=== PATIENT | female | born 1995 | race American Indian/Alaskan Native ===

== ENCOUNTER 2019-10-01 18:00 | Outpatient (CLI) | payer MEDICAID ==
[2019-10-01] MEDS ORDERED: ACETAMINOPHEN 325 MG TAB PO PRN (18:29)
[2019-10-01] MEDS ORDERED: ONDANSETRON 4 MG/2 ML INJ IV PRN (18:29)
--- NOTE | 2019-10-01 18:55 | History and Physical Report ---
History of Present Illness Date of examination: 10/01/19 (pt sent from [facility] office after her PNV this AM) Chief complaint: Chief Complaint / Current Status: Patient presents for OB f/u. Patient complains of depression and stress. Patient reports wanting to hurt herself............................................ .........................Karey Rhoades October 01, 2019 9:59 AM Problem # 1: Depression (ICD-311) ([id number]) states she has had counseling in the past but declined medication. Sent immediately to [facility] for admission (patient's mother is with her) and evaluation. Patient voiced understanding and agrees with POC History of present illness: EDC Confirmation: 01/14/2020 Gestational Age: 8 1/7 weeks Past History : 2 Term Births: 1 Premature Births: 0 Living Children: 1 Para: 1 Mult. Births: 0 Prev : 0 Prev. attempt? 0 Aborta: 0 Elect. Ab: 0 Spont. Ab: 0 Ectopics: 0 # 1 Delivery date: 2011 Weeks Gestation: 38 Delivery type: Delivery location: [place] Sex: Male weight: 6-5 Risk Factors: Smoked Tobacco Use: Former smoker Cigarettes: Yes -- 4 cigs/day pack(s) per day, Year started: 14 yrs old Years smoked: 03/2019 Smokeless Tobacco Use: Never Tobacco Use Comments: yoly prior to preg Passive smoke exposure: no Drug use: no HIV high-risk behavior: no Alcohol use: no Exercise: yes Times per week: 2 Type of Exercise: walking Seatbelt use: preg-food counselor % Dietary Counseling: pn yes PAP Smear History: Date of Last PAP Smear: 11/30/2017 Results: Normal Past Medical History: Umbilical hernia - 2018 Past Surgical History: Negative Past Surgical History Family History Summary: MGM - Has Family History of Hyperlipidemia - Entered On: 06/05/2019 MGM - Has Family History of Diabetes - Entered On: 06/05/2019 Social History: Patient is single Smoking History: Patient is a former smoker. 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 Infection History Hx of STD: gonorrhea HIV Risk Eval: no Hepatitis B Risk Eval: low risk Personal hx. of genital herpes: no Partner hx. of genital herpes: no Varicella/Chicken Pox Status: Previous Disease TB Risk: no Genetic History Congenital Heart Defect: Mom: no Dad: no Jody Disease: Mom: no Dad: no Thalassemia Mom: no Dad: no Neural Tube Defect Mom: no Dad: no Down's Syndrome Mom: no Dad: no Klaus-Sachs Mom: no Dad: no Sickle Cell Disease/Trait Mom: no Dad: no Hemophilia Mom: no Dad: no Muscular Dystrophy Mom: no Dad: no Cystic Fibrosis Mom: no Dad: no [place] Chorea Mom: no Dad: no Mental Retardation Mom: no Dad: no Fragile X Mom: no Dad: no Other Genetic/Chromosomal Disorder Mom: no Dad: no Child w/other defect Mom: no Dad: no Enviromental Exposures Xray Exposure: no Medication, drug, or alcohol use since LMP: no Chemical/Other Exposure: no Exposure to Cat Liter: no Hx of Parvovirus (Fifth Disease): no Occupational Exposure to Children: none Active Medications (reviewed today): None Current Allergies (reviewed today): no known allergies Past History REINFORCING ROD LAYER History: chlamydia, trichomonas Family/Genetic History: sickle cell/trait, cystic fibrosis/trait - Obstetrical History Expected Date of Delivery: 01/14/20 Actual Gestation: 25 Week(s) 1 Day(s) : 2 Para: 1 Hx # Term Pregnancies: 1 Number of Pregnancies: 0 Spontaneous Abortions: 0 Induced : 0 Number of Living Children: 1 Medications and Allergies Allergies Allergy/AdvReac Type Severity Reaction Status Date / Time No Known Allergies Allergy Verified 10/01/19 19:04 Active Meds: Active Medications Acetaminophen (Tylenol) 650 mg PO Q4H PRN PRN Reason: Pain MILD(1-3)/Fever >100.5/GOSS Multivitamins/Iron/Calcium ( Vitamin) 1 each PO QDAY ARINA Ondansetron HCl (Zofran) 4 mg IV Q6H PRN PRN Reason: Nausea And Vomiting Sertraline HCl (Zoloft) 100 mg PO QDAY ARINA - Vital Signs Vital signs: Vital Signs Temp Pulse Resp BP 98.7 F 84 18 112/62 10/01/19 18:42 10/01/19 18:42 10/01/19 18:42 10/01/19 18:42 Temp Pulse Resp BP Pulse Ox 98.7 F 84 18 112/62 10/01/19 18:42 10/01/19 18:42 10/01/19 18:42 10/01/19 18:42 - Obstetrical FHR: category 1 Uterine Contraction Monitor Mode: External Cervical Dilatation: 0.5 (fluids started) Cervical Effacement Percentage: 10 station: -3 Uterine Contraction Frequency (min): q2-3 Uterine Contraction Duration: 45 Uterine Contraction Pattern: Irregular Uterine Tone Measurement Phase: Resting Uterine Contraction Intensity: Mild Results Result Diagrams: 10/01/19 20:47 All other labs normal. Assessment and Plan 23yo @ 25 weeks gestation with SI. Sent from office this morning. Pt arrived after coordinating care for her child.Pt is here willing seeking help f or her mental health concerns. All orders in EMR. aware. Pt.is having some ctx that pt perceives. palpates moderate. IVFs infusing SVE .5,10%,-3 Terb .25 subq given. Visited with pt for an extended time. She tells me she has been "bothered" by depression since she was 11yo. She has had times she has sought care but just did not carry through. She says that she realizes that she will be the mom of three and has to get her self together. Pt did report that she vomited after the Zoloft and saw it come up. We also talked @ her +UDS. Pt voices that she eats the marijuana more than smokes. She denies any other drug use. Pt is very happy to be here and appreciates our helping her. - Patient Problems (1) Suicidal ideations Onset Date: ~10/01/19 Current Visit: Yes Status: Acute Plan to address problem: Pt told admitting RN that her dad had taken all the bottles of medication away from her because she had voiced taking them last week. This week she said she was going to take her mom's car and drive off a alejandra.. Pt did come to the hospital willingly and agrees to POC. Sitter has been requested, [address]. Pt started on Zoloft 100mg QD after consult with Dr Albright (2) Dichorionic diamniotic twin in second trimester Onset Date: ~10/01/19 Current Visit: Yes Status: Acute Plan to address problem: [facility] collaborating with [facility] in pt's care due to twin gestation Di/Di. Consult placed for continuity of care with [facility]. (3) 25 to 26 weeks gestation of Onset Date: ~10/01/19 Current Visit: Yes Status: Acute Plan to address problem: [facility]U admission. Orders in EMR. Appreciate consult with the care of this pt. and [facility] for ongoing care of pt. consulted
[2019-10-01] MEDS: SERTRALINE 100 MG TAB PO SCH (20:45)
[2019-10-01 21:07] LABS: Basophils % (Auto) 0.4 % (0.0-1.8); Eosinophils # (Auto) 0.1 K/mm3 (0.0-0.4); Eosinophils % (Auto) 1.3 % (0.0-4.3); Hematocrit 30.8 % (30.3-42.9); Hemoglobin 10.8 gm/dl (10.1-14.3); Lymphocytes # (Auto) 1.5 K/mm3 (1.2-5.4); Lymphocytes % (Auto) 18.1 % (13.4-35.0); Mean Corpuscular HGB Conc 35 % (30-34); Mean Corpuscular Volume 97 fl (79-97); Monocytes % (Auto) 11.4 % (0.0-7.3); Platelet Count 213 K/mm3 (140-440); Red Blood Count 3.19 M/mm3 (3.65-5.03); Red Cell Distribution Width 12.9 % (13.2-15.2)
[2019-10-01 21:12] LABS: Amphetamine Screen,Urine PRESUMPTIVE NEGATIVE; Benzodiazepines Screen,Urine PRESUMPTIVE NEGATIVE; Cocaine Screen,Urine PRESUMPTIVE NEGATIVE; Methadone Screen,Urine PRESUMPTIVE NEGATIVE; Opiate Screen,Urine PRESUMPTIVE NEGATIVE
[2019-10-01 21:23] LABS: Cannabinoid Screen,Urine PRESUMPTIVE POSITIVE
[2019-10-02] MEDS ORDERED: ONDANSETRON 4 MG ODT TAB ONE (00:32)
[2019-10-02] MEDS ORDERED: ONDANSETRON 4 MG ODT TAB PO PRN ×3 (02:53→02:56)
[2019-10-02] MEDS ORDERED: LACTATED RINGERS 1,000 ML ONE (05:53)
[2019-10-02] MEDS ORDERED: TERBUTALINE 1 MG/1 ML INJ SUB-Q ONE (07:00)
[2019-10-02] MEDS: LACTATED RINGERS 1,000 ML IV SCH ×3 (08:30→19:36)
[2019-10-02] MEDS ORDERED: PRENATAL VIT27-FE FUMARATE-FOLIC ACID VIT TAB PO SCH (10:00)
[2019-10-02] MEDS: SERTRALINE 100 MG TAB PO SCH (10:23)
--- NOTE | 2019-10-02 15:44 | Progress Note ---
Assessment and Plan pt resting, no complaints. sitter present. - Patient Problems (1) 25 to 26 weeks gestation of Onset Date: ~10/01/19 Current Visit: Yes Status: Acute (2) Depression affecting in second trimester, antepartum Current Visit: Yes Status: Acute (3) Dichorionic diamniotic twin in second trimester Onset Date: ~10/01/19 Current Visit: Yes Status: Acute Plan to address problem: monitoring q8hrs in the absence of decreased fm or signs of labor. AMFM consult in place, they will come see patient tomorrow (4) Suicidal ideations Onset Date: ~10/01/19 Current Visit: Yes Status: Acute Plan to address problem: waiting on mental health to come see patient pt currently in good spirits Subjective - Subjective Date of service: 10/02/19 Principal diagnosis: IUP @ 25w0d; di/di twins w/ suicidal ideation Patient reports: movement normal, no new complaints, no loss of fluid, no vaginal bleeding, no contractions Objective - Vital Signs Vital Signs: Vital Signs - 12hr 10/02/19 10/02/19 10/02/19 04:28 05:03 07:23 Temperature 98.6 F Pulse Rate 67 67 72 Respiratory 18 Rate Blood Pressure 108/58 Blood Pressure 108/58 [Left] O2 Sat by Pulse 99 Oximetry 10/02/19 10/02/19 10/02/19 07:28 07:33 07:38 Temperature Pulse Rate 65 73 78 Respiratory Rate Blood Pressure Blood Pressure [Left] O2 Sat by Pulse 98 98 97 Oximetry 10/02/19 10/02/19 10/02/19 07:43 07:45 07:48 Temperature 98.2 F Pulse Rate 88 76 Respiratory 16 Rate Blood Pressure Blood Pressure [Left] O2 Sat by Pulse 99 98 Oximetry 10/02/19 10/02/19 10/02/19 07:53 07:58 08:03 Temperature Pulse Rate 81 96 H 93 H Respiratory Rate Blood Pressure Blood Pressure [Left] O2 Sat by Pulse 99 100 99 Oximetry 10/02/19 10/02/19 10/02/19 08:08 08:13 08:18 Temperature Pulse Rate 94 H 82 80 Respiratory Rate Blood Pressure Blood Pressure [Left] O2 Sat by Pulse 97 100 98 Oximetry 10/02/19 10/02/19 10/02/19 08:23 08:28 08:33 Temperature Pulse Rate 79 93 H 83 Respiratory Rate Blood Pressure Blood Pressure [Left] O2 Sat by Pulse 100 99 99 Oximetry 10/02/19 10/02/19 10/02/19 08:38 08:43 08:48 Temperature Pulse Rate 90 76 68 Respiratory Rate Blood Pressure Blood Pressure [Left] O2 Sat by Pulse 99 100 99 Oximetry 10/02/19 10/02/19 10/02/19 08:53 08:58 09:03 Temperature Pulse Rate 71 76 72 Respiratory Rate Blood Pressure Blood Pressure [Left] O2 Sat by Pulse 99 99 99 Oximetry 10/02/19 10/02/19 10/02/19 09:08 09:13 09:18 Temperature Pulse Rate 78 77 83 Respiratory Rate Blood Pressure Blood Pressure [Left] O2 Sat by Pulse 98 98 97 Oximetry 10/02/19 10/02/19 10/02/19 09:23 09:28 09:33 Temperature Pulse Rate 76 77 80 Respiratory Rate Blood Pressure Blood Pressure [Left] O2 Sat by Pulse 98 97 97 Oximetry 10/02/19 10/02/19 10/02/19 09:38 09:43 09:48 Temperature Pulse Rate 73 85 74 Respiratory Rate Blood Pressure Blood Pressure [Left] O2 Sat by Pulse 98 98 97 Oximetry 10/02/19 10/02/19 10/02/19 09:53 09:58 10:03 Temperature Pulse Rate 76 77 76 Respiratory Rate Blood Pressure Blood Pressure [Left] O2 Sat by Pulse 98 97 97 Oximetry 10/02/19 10/02/19 10/02/19 10:13 10:18 10:20 Temperature Pulse Rate 84 76 72 Respiratory Rate Blood Pressure 108/59 Blood Pressure [Left] O2 Sat by Pulse 99 99 Oximetry 10/02/19 10/02/19 10/02/19 10:23 10:28 10:33 Temperature Pulse Rate 78 83 87 Respiratory Rate Blood Pressure Blood Pressure [Left] O2 Sat by Pulse 99 99 98 Oximetry 10/02/19 10/02/19 10/02/19 10:38 10:43 10:48 Temperature Pulse Rate 81 80 73 Respiratory Rate Blood Pressure Blood Pressure [Left] O2 Sat by Pulse 99 99 100 Oximetry 10/02/19 10/02/19 10/02/19 10:53 10:58 11:03 Temperature Pulse Rate 74 95 H 91 H Respiratory Rate Blood Pressure Blood Pressure [Left] O2 Sat by Pulse 99 99 98 Oximetry 10/02/19 10/02/19 10/02/19 11:08 11:13 11:42 Temperature Pulse Rate 74 74 74 Respiratory Rate Blood Pressure Blood Pressure [Left] O2 Sat by Pulse 98 98 98 Oximetry 10/02/19 10/02/19 10/02/19 11:47 11:52 11:57 Temperature Pulse Rate 70 77 68 Respiratory Rate Blood Pressure Blood Pressure [Left] O2 Sat by Pulse 99 98 98 Oximetry 10/02/19 10/02/19 10/02/19 12:02 12:07 12:12 Temperature Pulse Rate 69 65 76 Respiratory Rate Blood Pressure Blood Pressure [Left] O2 Sat by Pulse 98 98 97 Oximetry 10/02/19 10/02/19 10/02/19 12:17 12:22 12:40 Temperature Pulse Rate 68 77 65 Respiratory Rate Blood Pressure Blood Pressure [Left] O2 Sat by Pulse 98 99 98 Oximetry 10/02/19 10/02/19 10/02/19 12:45 12:50 12:55 Temperature Pulse Rate 64 68 76 Respiratory Rate Blood Pressure Blood Pressure [Left] O2 Sat by Pulse 97 97 97 Oximetry 10/02/19 10/02/19 10/02/19 13:00 13:05 13:10 Temperature Pulse Rate 70 82 74 Respiratory Rate Blood Pressure Blood Pressure [Left] O2 Sat by Pulse 97 97 97 Oximetry 10/02/19 10/02/19 10/02/19 13:15 13:19 13:20 Temperature Pulse Rate 76 78 73 Respiratory Rate Blood Pressure 128/75 Blood Pressure [Left] O2 Sat by Pulse 98 97 Oximetry 10/02/19 10/02/19 10/02/19 13:25 13:30 13:35 Temperature Pulse Rate 71 71 71 Respiratory Rate Blood Pressure Blood Pressure [Left] O2 Sat by Pulse 98 98 99 Oximetry 10/02/19 10/02/19 10/02/19 13:40 13:52 13:57 Temperature Pulse Rate 78 75 64 Respiratory Rate Blood Pressure Blood Pressure [Left] O2 Sat by Pulse 99 99 98 Oximetry 10/02/19 10/02/19 10/02/19 14:02 14:07 14:12 Temperature Pulse Rate 64 67 67 Respiratory Rate Blood Pressure Blood Pressure [Left] O2 Sat by Pulse 99 98 98 Oximetry 10/02/19 10/02/19 10/02/19 14:17 14:22 14:27 Temperature Pulse Rate 69 74 64 Respiratory Rate Blood Pressure Blood Pressure [Left] O2 Sat by Pulse 98 97 99 Oximetry 10/02/19 10/02/19 10/02/19 14:32 14:37 14:42 Temperature Pulse Rate 66 70 69 Respiratory Rate Blood Pressure Blood Pressure [Left] O2 Sat by Pulse 97 97 97 Oximetry 10/02/19 10/02/19 10/02/19 14:47 14:52 14:57 Temperature Pulse Rate 74 66 71 Respiratory Rate Blood Pressure Blood Pressure [Left] O2 Sat by Pulse 97 97 98 Oximetry 10/02/19 10/02/19 15:02 15:07 Temperature Pulse Rate 69 65 Respiratory Rate Blood Pressure Blood Pressure [Left] O2 Sat by Pulse 99 98 Oximetry - Exam Breasts: normal Cardiovascular: Regular rate Lungs: Clear to auscultation, Normal air movement Abdomen: Present: normal appearance, soft FHR: auscultation normal Uterine Contraction Monitor Mode: External Uterine Contraction Pattern: Absent Uterine Tone Measurement Phase: Resting Extremities: normal - Labs Labs: Abnormal Labs 10/01/19 20:47 RBC 3.19 L MCH 34 H MCHC 35 H RDW 12.9 L [place] % (Auto) 11.4 H [place] # 1.0 H Laboratory Results - last 24 hr 10/01/19 10/01/19 20:47 Unknown WBC 8.4 RBC 3.19 L Hgb 10.8 Hct 30.8 MCV 97 MCH 34 H MCHC 35 H RDW 12.9 L Plt Count 213 Lymph % (Auto) 18.1 [place] % (Auto) 11.4 H Eos % (Auto) 1.3 Baso % (Auto) 0.4 Lymph # 1.5 [place] # 1.0 H Eos # 0.1 Baso # 0.0 Seg Neutrophils % 68.8 Seg Neutrophils # 5.8 Urine Opiates Screen Presumptive negative Urine Methadone Screen Presumptive negative Ur Barbiturates Screen Presumptive negative Ur Phencyclidine Scrn Presumptive negative Ur Amphetamines Screen Presumptive negative U Benzodiazepines Scrn Presumptive negative Urine Cocaine Screen Presumptive negative U Marijuana (THC) Screen Presumptive positive Drugs of Abuse Note Disclamer
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
--- NOTE | 2019-10-02 17:27 | Event Note ---
Date: 10/02/19 Agree with MW exam and note. Will await full evaluation by psych and recommendations. Pt currently stable from ob standpoint for d/c to home.
[2019-10-03] MEDS ORDERED: DEXMEDETOMIDINE 200 MCG/2 ML VIAL IV ONE (00:30)
[2019-10-03 04:59] VITALS: BP 114/61
[2019-10-03] MEDS: LACTATED RINGERS 1,000 ML IV SCH (05:00)
[2019-10-03] MEDS ORDERED: NIFEdipine*For Tocolysis only* 10 MG CAPSULE PO ONE ×2 (06:36→06:46)
--- NOTE | 2019-10-03 09:45 | Discharge Summary ---
Providers - Providers Date of Admission: 10/03/2019 Date of discharge: 10/03/19 (Pt denies SI, plans to harm self or anyone else and desires to go home.) Attending physician: LATHA GARCIA 10/01/19 18:29 Consult to Physician [CONS] Routine Comment: Consulting Provider: MONA ADAMES Physician Instructions: Reason For Exam: continuity of care 10/01/19 18:47 Consult to Mental Health [CONS] Urgent Reason For Exam: voiced thoughts of harming herself Primary care physician: LATHA GARCIA Hospitalization Reason for admission: other (25 wks twin IUP, who presented with thoughts of suicide, and a plan to harm herself. ) Pertinent studies: This AM, pt denies SI, feelings of harming herself or others. She also denies vag bleeding, LOF, ctxs. Explained that if any of the above occur to go to the OB triage immediately. Pt verbalized understanding. Her mother is coming to pick her up from the hospital. She also understands that she is to schedule appointment with the high density talc coater operator, , and mental health teams within the week. Hospital course: S: "I'm feeling so much better today. I have so many stories from other women and it is making me feel better. I have no plans to harm myself, thoughts of killing my self, or a plan to hurt others. the medicine that they are giving me is making me feel better and my brain feels better". O: Denies SI, harm to self or any one else. Twins appropriate monitor strip for gestational age. VSS. Denies vag bleeding, LOF, ctxs. Adequate I&Os. A: 23 y.o. @ 25 wks, twin gestation admitted for SI, no cleared by OB, psych, and AMFM to go home. P: Discharge home with instructions. To follow up with mental health in 1 week. To follow up with OB in 1 week. To follow up with AMFM in 1 week. Condition at discharge: Good Disposition: DC-01 TO HOME OR SELFCARE Plan - Provider Discharge Summary Activity: routine, other (Follow up with care, high density talc coater operator doctors, and mental health provider in l week) Diet: routine Instructions: routine Additional instructions: [] Smoking cessation referral if applicable(refer to patient education folder for contact #) [] Refer to [facility] Booklet Call your doctor immediately for: * Fever > 100.5 * Heavy vaginal bleeding ( >1 pad per hour) * Severe persistent headache * Shortness of breath * Reddened, hot, painful area to leg or breast * Drainage or odor from incision. * Keep incision clean and dry at all times and follow doctor's instructions regarding bathing/showering - Follow up plan Follow up: LATHA GARCIA MD [Primary Care Provider] - 7 Days (Please Follow up: 1 week with OB doctors. 1 Week with mental health docotors. 1 week with high density talc coater operator doctors. Take all medication as prescribed. If you have any questions or concerns, please given us a call at [phone] or go to the nearest ER for help.)
[2019-10-03] MEDS ORDERED: FLUoxetine 10 MG TAB PO SCH (10:00)
== END 2019-10-03 11:50 | disposition home or self-care (01) ==
LOC: TRG 18:00 → LD 18:52 → TRG 10-03 11:50
PROVIDERS: ATTEND Obstetrics & Gynecology
DX: O99.342 Other mental disorders complicating pregnancy, second trimester (principal); R45.851 Suicidal ideations; F32.9 Major depressive disorder, single episode, unspecified; O30.042 Twin pregnancy, dichorionic/diamniotic, second trimester; O47.02 False labor before 37 completed weeks of gestation, second trimester; Z3A.25 25 weeks gestation of pregnancy; Z87.891 Personal history of nicotine dependence
CPT/HCPCS: 36415; 80307; 85025; 86850; 86870; 86900; 86901; 96360; 96361; 96372; 96374; J2405; J3105; J7120; J3490; Q0162